=== PATIENT | female | born 1975 | race Caucasian/White ===

== ENCOUNTER → 2016-11-01 | Outpatient (CLI) | payer BC ==
--- NOTE | 2016-11-01 23:22 | RADIOLOGY REPORT PS360 ---
FACIAL BONES 3 VIEWS HISTORY: FALL ON STAIRS 3 days ago pain right side of nodes Patient Age: 41 years: Female Ordering Physician: Emily Chau APRN TECHNIQUE: 3 views facial bones AP Luciano lateral. COMPARISON : FINDINGS Swollen left the nasal bone is intact and the lateral view of the . No dedicated nasal bone series this view appears satisfactory as does the [place] view. The orbital rim is intact. The wall of the maxillary sinuses intact. Cirrhotic mag arch is intact. Ethmoid sphenoid and frontal sinuses unremarkable. Mandible intact mild deviation nasal septum convex to the left IMPRESSION: Facial bones intact with no fracture evident. Nasal bone intact on included lateral view Paranasal sinuses clear. Orbital rims satisfactory.
== END ==
LOC: RAD 11:09
DX: J34.89 Other specified disorders of nose and nasal sinuses (principal); R51 Headache; W10.8XXA Fall (on) (from) other stairs and steps, initial encounter